=== PATIENT | female | born 1995 | race African-American/Black ===

== ENCOUNTER 2017-08-04 13:51 | Emergency (ER) | payer OTHER ==
[~2017-08-04] VITALS: Ht 160 cm; Wt 55.0 kg
[2017-08-04 14:13] VITALS: BP 110/73
== END 2017-08-04 15:31 | disposition home or self-care (01) ==
LOC: ER 15:00
DX: K64.8 Other hemorrhoids (principal); K59.00 Constipation, unspecified
CPT/HCPCS: 99282